=== PATIENT | female | born 1990 ===

== ENCOUNTER 2018-01-06 00:10 | Inpatient (IN) | payer BC, OTHER ==
[2018-01-06] MEDS ORDERED: LIDOCAINE 1% 300 MG/30 ML SDV ONE (00:22)
[2018-01-06] MEDS ORDERED: AMMONIA AROMATIC 1 EACH AMP IH ONE (00:22)
[2018-01-06] MEDS ORDERED: OXYTOCIN 10 UNIT/ML VIAL ONE (00:22)
[2018-01-06] MEDS ORDERED: OLIVE OIL 118 ML BTL ONE (00:22)
[2018-01-06] MEDS ORDERED: MISOPROSTOL 200 MCG TAB ONE (00:22)
[2018-01-06] MEDS ORDERED: TERBUTALINE SULFATE 1 MG/ML VIAL ONE (00:22)
[2018-01-06] MEDS ORDERED: OXYTOCIN 20 UNIT in LR 1,000 ML IV PRN (00:23)
[2018-01-06] MEDS ORDERED: MISOPROSTOL 200 MCG TAB PR PRN (00:23)
[2018-01-06] MEDS ORDERED: LR 1,000 ML IV PRN (00:23)
[2018-01-06] MEDS ORDERED: EPSOM SALT 454 GM TP PRN (00:23)
[2018-01-06] MEDS ORDERED: TERBUTALINE SULFATE 1 MG/ML VIAL IV PRN (00:23)
[2018-01-06] MEDS ORDERED: OLIVE OIL 118 ML BTL MISC PRN (00:23)
[2018-01-06] MEDS: IBUPROFEN 600 MG TAB PO PRN ×4 (01:31→19:47)
--- NOTE | 2018-01-06 01:47 | PDGENHP ---
History and Physical - Chief Complaint Active labor - History of Present Illness Thalia is a 27 yo who contacted me at 2340 reporting regular, strong contractions. 38w3d today by 8wk US which redated her from LMP (current MAYCO is 01/17/18). She had been seen in clinic earlier in the day and was 3.5cm and had membranes swept. She said that ctx's were present but irregular until shortly before she called me this evening. I received word that she had arrived at the L&D unit at 1220 and at that initial check she was 8-9cm and still intact and I headed into the hospital immediately. When I arrived at 1240 the baby was just delivered 3 minutes prior - he was doing well on mom's chest, cord clamped and cut, placenta still undelivered. Thalia was a transfer of care to our office at 34 wks - they had moved from [facility] for his work and established with us. Overall uncomplicated 2nd - baby brother Az is 20 mos. Had been started on some oral Fe supps at recent visits for Hct 34. GBS negative. History Information - Allergies/Home Medication List Allergies/Adverse Reactions: Penicillins Allergy (Verified 01/06/18 01:28) I have personally reviewed and updated: family history, medical history, social history, surgical history - Past Medical History no pertinent PMH - Surgical History Reports: no pertinent surgical hx - Family History Positive for: non-pertinent - Social History Smoking Status: Never smoked Alcohol Use: None Review of Systems Review of Systems: Physical Exam Physical Exam: Lab Data & Imaging Review Lab Review: A positive Ab neg RPR NR Rubella immune Hep B neg TSH normal first tri Vit D low first tri (on supp) Pap normal first tri GC/C neg 05/2017 Had normal 2hr GTT at 28 wks? Assessment & Plan Assessment: 27 yo now - presented in active labor at 38w3d at 9cm. Delivered precipitously within 20 minutes of arriving. See delivery note - I delivered placenta and repaired 2nd degree laceration. Mom and baby boy "[place]" doing well afterwards. She does not have an IV and has had no labs. A pos, GBS negative. Will check H/H tomorrow AM. EBL 250cc. They do want circ for baby boy.
--- NOTE | 2018-01-06 02:04 | OBDEL ---
Info Type: Vaginal Presentation at Delivery: Vertex L&D Analgesia/Anesthesia Type: None GBS+: No Intrapartum Medications: Generic Name Dose Route Start Last Admin Trade Name Freq PRN Reason Stop Dose Admin Ibuprofen 600 mg 01/06/18 00:23 01/06/18 01:31 Motrin PO 07/05/18 00:22 600 mg Q6HRS PRN Administration post , inflammation Discontinued Medications Generic Name Dose Route Start Last Admin Trade Name Freq PRN Reason Stop Dose Admin Oxytocin 20 unit/ Lactated 1,002 mls @ 150 mls/hr 01/06/18 00:23 01/06/18 00: 59 Ringer's IV 1,002 mls PRN PRN Administration Post- bleeding - Hospital Course Intrapartum: Presented at approximately 0020, SROM at 0027, Complete 0030, delivery 0037. Indications for Delivery: Spontaneous Labor Vaginal Delivery - Delivery Provider Delivery Physician/CNM: Mauro Rutherford (Present for delivery of placenta and repair of laceration.) - Labor and Delivery Onset of Contractions Date: 01/05/18 Onset of Contractions Time: 23:00 Onset of Contractions Type: Spontaneous Rupture of Membranes Date: 01/06/18 Rupture of Membranes Time: 00:27 Rupture of Membranes Type: Spontaneous Amniotic Fluid Color: Clear Dilation Complete Date: 01/06/18 Dilation Complete Time: 00:30 Placenta Delivery Date: 01/06/18 Placenta Delivery Time: 00:55 Total Hours of Labor: 1 Laceration: 2nd Degree Repair: 3-0, Vicryl Vaginal Sponge Count Correct: Yes Vaginal Needle Count Correct: Yes Vaginal Sweep Performed: Yes EBL: 250cc Delivery Events: None (Per nursing report - Pt delivered over 2 contractions, very controlled, no nuchal cord, shoulders delivered easily. Baby boy up to mom' s chest where cord was clamped and cut.) Delivery Comment: As above - pt called me at 2340 reporting painful ctx's. I was notified at 1220 that the patient had arrived on the unit, was 8-9cm and intact, and I started in to the hospital. When I arrived at 1240 the baby had been delivered 3 minutes prior. When I entered the room baby boy was doing well on mom's chest , cord was clamped and cut, and placenta still undelivered. Placenta delivered spontaneously with gentle traction on the cord and some fundal pressure. IM Pitocin given after delivery of the placenta. Perineum inspected - 2nd degree laceration. Local w/ lidocaine injected liberally 10cc and laceration repaired with 3-0 vicryl standard fashion. Mom and baby doing well in room at conclusion. - Medications Labor Augmentation/Induction Methods Used: None Stanley Data MAYCO: 01/17/18 Gestational Age: 38 week(s) and 3 day(s) [place] Delivery Date: 01/06/18 Delivery Time: 00:37 Sex of : Male ([place]) Score (1 Min): 8 Score (5 Min): 9 Shoulder Dystocia Dystocia Comment: None per RN report. ICD10 Worksheet Patient Problems: Problems Problem Status Onset Anemia affecting Acute Precipitous delivery, delivered (current hospitalization) Acute - ICD10 Problem Qualifiers (1) Precipitous delivery, delivered (current hospitalization) (2) Anemia affecting Qualifiers: Trimester: third trimester Qualified Code(s): O99.013 - Anemia complicating , third trimester
[2018-01-06] MEDS ORDERED: HYDROCODONE/APAP 5/325 TAB PO PRN (07:10)
[2018-01-06] MEDS ORDERED: POLYETHYLENE GLYCOL 3350 17 GM PKT PO PRN (07:10)
[2018-01-06] MEDS ORDERED: MAGNESIUM HYDROXIDE 30 ML UDCUP PO PRN (07:10)
[2018-01-06] MEDS ORDERED: LACTULOSE 20 GM/30 ML UDCUP PO PRN (07:10)
[2018-01-06] MEDS ORDERED: BISACODYL 10 MG SUPP PR PRN (07:10)
[2018-01-06] MEDS ORDERED: HYDROCORTISONE 0.5% CREAM TP PRN (07:10)
[2018-01-06] MEDS ORDERED: ACETAMINOPHEN 325 MG TAB PO PRN (07:10)
[2018-01-06] MEDS: SENNOSIDES/DOCUSATE SODIUM TAB PO SCH ×2 (09:12→19:47)
--- NOTE | 2018-01-06 13:44 | OBPP ---
Progress Note Assessment/Plan: Assessment: s/p precipitous PPD #0.5 Plan: Continue routine pp care Plan for d/c home in 24-48 hrs 01/06/18 13:35 Subjective/ Course: 01/06/18 13:44 Pt seen and examined. Doing well with no complaints. Mild cramping, enoc when . Mod lochia. Pt is OOB, anuja regular diet, voiding and passing flatus. BF without difficulty. Objective: 01/06/18 07:31 Patient ABO/Rh A POSITIVE 01/06/18 07:31 Temp Pulse Resp BP Pulse Ox 37.1 C 75 16 112/71 01/06/18 10:06 01/06/18 10:06 01/06/18 10:06 01/06/18 10:06 Uterine Position/Fundal Height: Umbilicus -2 Uterine Tone: Firm Physical Exam - Physical Exam Respiratory: lungs clear, normal breath sounds Cardiac/Chest: regular rate, rhythm Abdomen: normal bowel sounds, non-tender, soft, flatus (+) Extremities: non-tender, normal inspection Skin: normal color, warm/dry Neuro/Psych: alert, normal mood/affect, oriented x 3
[2018-01-07] MEDS: IBUPROFEN 600 MG TAB PO PRN (05:59)
[2018-01-07 08:49] VITALS: BP 121/76; RESP 17; TEMP 98; O2SAT 95
--- NOTE | 2018-01-07 09:24 | OBGCSDC ---
General Delivery Information - General Info : 2 Para: 1 Abortions: 0 Type: Vaginal L&D Analgesia/Anesthesia Type: Epidural Admission Date: 01/06/18 Labs: Patient ABO/Rh A POSITIVE 01/06/18 07:31 Hct 32.8 % (38.0-47.0) L 01/07/18 06:20 - Hospital Course Intrapartum: Presented at approximately 0020, SROM at 0027, Complete 0030, delivery 0037. : 01/06/18 13:44 Pt seen and examined. Doing well with no complaints. Mild cramping, enoc when . Mod lochia. Pt is OOB, anuja regular diet, voiding and passing flatus. BF without difficulty. 01/07/18 13:21 S) Pt doing well, reports min pain and bleeding. she is ambulating and voiding without difficulty. She is . She desires discharge home today. O) VSS, afebrile constitutional: WNWF, A&Ox3 HEENT: normocephalic, atraumatic, supple Heart: RRR, No murmur Chest: CTA-B Abdomen: Soft, nontender Uterus: Firm at U-2 Lochia: Minimal rubra Perineum: Intact, healing well Extremities: Trace edema, and negative Ramo's sign Neuro: Grossly normal A)27-year-old S/P - precipitous delivery PPD#1 P) Discharge home today Continue Pelvic rest x6wks Discussed danger signs (infection, preeclampsia, depression, heavy bleeding, etc ) Continue PO iron RTO in 4/6 weeks 01/07/18 13:25 Vaginal - Delivery Provider Delivery Physician/CNM: Mauro Rutherford (Present for delivery of placenta and repair of laceration.) - Diagnosis Labor: Spontaneous Rupture of Membranes Type: Spontaneous Amniotic Fluid Color: Clear Laceration: 2nd Degree Repair: 3-0, Vicryl Delivery Events: None (Per nursing report - Pt delivered over 2 contractions, very controlled, no nuchal cord, shoulders delivered easily. Baby boy up to mom' s chest where cord was clamped and cut.) - Delivery EBL: 250cc Data MAYCO: 01/17/18 Gestational Age: 38 week(s) and 4 day(s) [place] Delivery Date: 01/06/18 Delivery Time: 00:37 Sex of Infant: Male Weight (gm): 3198 kg Score (1 Min): 8 Score (5 Min): 9 Discharge Information - Discharge Information Prescriptions: Ibuprofen [Motrin (*)] 600 mg PO Q6HRS PRN #60 tab PRN Reason: Pain, Inflammatory Condition: Good Instruction/Follow Up: See Instruction Sheet, Four Weeks, Six Weeks
[2018-01-07] MEDS: SENNOSIDES/DOCUSATE SODIUM TAB PO SCH (10:51)
[2018-01-07 14:11] VITALS: PULSE 94
== END 2018-01-07 12:00 | disposition home or self-care (01) | DRG 775 ==
LOC: FLD 00:10 → OBSVTOIN 00:24 → FOB 10:45
PROVIDERS: ADMIT Obstetrics & Gynecology; ATTEND Obstetrics & Gynecology
PROC: 0KQM0ZZ Repair Perineum Muscle, Open Approach (ICD-10-PCS; principal; 2018-01-06)
PROC: 10E0XZZ Delivery of Products of Conception, External Approach (ICD-10-PCS; principal; 2018-01-06)
DX: O70.1 Second degree perineal laceration during delivery (principal); Z37.0 Single live birth; Z3A.38 38 weeks gestation of pregnancy
CPT/HCPCS: J2590; J3105